=== PATIENT | female | born 1960 | race Caucasian/White ===

== ENCOUNTER 2021-10-02 15:49 | Emergency (ER) | payer MEDICAID ==
[~2021-10-02] VITALS: Ht 165.1 cm; Wt 66.0 kg
[2021-10-02] MEDS ORDERED: PREDNISONE 20MG TABLET PO ONE (16:45)
[2021-10-02] MEDS ORDERED: DIPHENHYDRAMINE 25MG CAPSULE PO ONE (16:45)
[2021-10-02] MEDS ORDERED: P20 MT (16:51)
[2021-10-02] MEDS ORDERED: DIPH25CA83 MT (16:51)
[2021-10-02 17:10] LABS: EOSINOPHILS % 3.2 % (0.0-5.0); HEMATOCRIT. 39.3 % (36.0-48.0); HEMOGLOBIN. 13.2 g/dL (12.0-16.0); LYMPHOCYTES % 19.9 % (20.0-50.0); MEAN CORPUSCULAR HEMOGLOBIN 28.4 pg (28.0-32.0); MEAN CORPUSCULAR VOLUME 84.4 fL (81.0-99.0); MEAN PLATELET VOLUME 7.6 fl (7.4-10.4); MONOCYTES % 6.6 % (2.0-8.0); NEUTROPHILS % 69.3 % (40.0-76.0); PLATELET 250 x1000/uL (130-400); RED BLOOD CELL COUNT 4.65 mill/uL (4.2-5.4); RED CELL DISTRIBUTION WIDTH 13.9 % (11.6-14.6)
[2021-10-02 17:20] LABS: CHLORIDE 107 mEq/L (98-107)
[2021-10-02] MEDS ORDERED: ENAL10TA19 MT (18:00)
[2021-10-02 18:09] VITALS: BP 144/89
[2021-10-06 06:11] LABS: HIV SCREEN 4G Non Reactive (Non Reactive)
== END 2021-10-02 18:11 | disposition home or self-care (01) ==
LOC: ER 15:49
DX: R21 Rash and other nonspecific skin eruption (principal); I10 Essential (primary) hypertension; Z98.890 Other specified postprocedural states
CPT/HCPCS: 36415; 80053; 81025; 85025; 86592; 86593; 86780; 87389; 99283; J7512; Q0163

== ENCOUNTER 2021-10-20 12:33 | Emergency (ER) | payer MEDICAID ==
[~2021-10-20] VITALS: Ht 165.1 cm; Wt 66.0 kg
[~2021-10-20 12:33] MED LIST: DIPH25CA83 MT; ENAL10TA19 MT; P20 MT
[2021-10-20] MEDS ORDERED: ONDANSETRON HCL 4MG/2ML INJ IV STA (12:45)
[2021-10-20] MEDS ORDERED: SODIUM CHLORIDE 0.9% 1,000 ML IV ONE (12:45)
[2021-10-20 13:23] LABS: HEMATOCRIT. 42.5 % (36.0-48.0); HEMOGLOBIN. 14.5 g/dL (12.0-16.0); MEAN CORPUSCULAR VOLUME 82.2 fL (81.0-99.0); MEAN PLATELET VOLUME 7.3 fl (7.4-10.4); PLATELET 457 x1000/uL (130-400); RED BLOOD CELL COUNT 5.16 mill/uL (4.2-5.4); RED CELL DISTRIBUTION WIDTH 13.2 % (11.6-14.6)
[2021-10-20] MEDS ORDERED: PENICILLIN G BENZATHINE 2,400,000 UNITS/4ML SYR IM SCH (13:30)
[2021-10-20 13:32] LABS: CHLORIDE 98 mEq/L (98-107)
[2021-10-20 13:49] LABS: PLATELET ESTIMATE INCREASED
[2021-10-20 15:00] VITALS: BP 153/98
== END 2021-10-20 15:24 | disposition home or self-care (01) ==
LOC: ER 12:33
DX: B34.9 Viral infection, unspecified (principal); A51.49 Other secondary syphilitic conditions; I10 Essential (primary) hypertension; Z20.822 Contact with and (suspected) exposure to COVID-19; Z98.890 Other specified postprocedural states; Z86.73 Personal history of transient ischemic attack (TIA), and cerebral infarction without residual deficits
CPT/HCPCS: 36415; 71045; 80053; 83880; 85025; 87070; 87426; 87430; 93005; 96360; 96372; 99285; J0561; J7030; Z7610

== ENCOUNTER 2022-02-24 18:15 | Emergency (ER) | payer MEDICAID, OTHER ==
[~2022-02-24] VITALS: Ht 167.6 cm; Wt 70.0 kg
[2022-02-24 19:08] VITALS: BP 126/93
== END 2022-02-24 19:40 | disposition left against medical advice (07) ==
LOC: ER 18:15
DX: R56.9 Unspecified convulsions (principal); I10 Essential (primary) hypertension; Z86.73 Personal history of transient ischemic attack (TIA), and cerebral infarction without residual deficits; Z98.890 Other specified postprocedural states
CPT/HCPCS: 99283

== ENCOUNTER 2022-02-25 17:13 | Emergency (ER) | payer MEDICAID ==
[~2022-02-25] VITALS: Ht 170.2 cm; Wt 57.0 kg
[2022-02-25 17:35] VITALS: BP 142/92
== END 2022-02-25 17:38 | disposition left against medical advice (07) ==
LOC: ER 17:13
DX: Z53.21 Procedure and treatment not carried out due to patient leaving prior to being seen by health care provider (principal); R56.9 Unspecified convulsions; I10 Essential (primary) hypertension; Z86.73 Personal history of transient ischemic attack (TIA), and cerebral infarction without residual deficits; Z98.890 Other specified postprocedural states

== ENCOUNTER 2022-08-10 18:11 | Emergency (ER) | payer MEDICAID ==
[~2022-08-10] VITALS: Ht 165.1 cm; Wt 70.0 kg
[2022-08-10] MEDS ORDERED: LIDOCAINE HCL 1% 20ML VIAL (Pyxis) INJ INFIL ONE (20:15)
[2022-08-10 21:41] VITALS: BP 168/112
== END 2022-08-10 21:47 | disposition home or self-care (01) ==
LOC: ER 18:11
DX: L02.411 Cutaneous abscess of right axilla (principal); I10 Essential (primary) hypertension; Z98.890 Other specified postprocedural states; Z86.73 Personal history of transient ischemic attack (TIA), and cerebral infarction without residual deficits; Z86.59 Personal history of other mental and behavioral disorders
CPT/HCPCS: 10060; 99282; Z7610

== ENCOUNTER 2022-08-15 13:11 | Emergency (ER) | payer MEDICAID ==
[~2022-08-15] VITALS: Ht 165.1 cm; Wt 75.0 kg
[2022-08-15 13:34] VITALS: BP 130/89
[2022-08-15] MEDS ORDERED: CLINDAMYCIN HCL 150MG CAPSULE PO STA (15:05)
[2022-08-15] MEDS ORDERED: CLIN-116 MT (15:09)
== END 2022-08-15 15:32 | disposition home or self-care (01) ==
LOC: ER 13:16
DX: L03.113 Cellulitis of right upper limb (principal); I10 Essential (primary) hypertension; Z98.890 Other specified postprocedural states; Z86.59 Personal history of other mental and behavioral disorders; Z86.73 Personal history of transient ischemic attack (TIA), and cerebral infarction without residual deficits
CPT/HCPCS: 99283

== ENCOUNTER 2022-08-30 18:18 | Emergency (ER) | payer MEDICAID ==
[~2022-08-30] VITALS: Ht 165.1 cm; Wt 66.0 kg
[~2022-08-30 18:18] MED LIST changes: +CLIN-116 MT
[2022-08-30 18:41] VITALS: BP 144/85
[2022-08-30] MEDS ORDERED: B50 MT (18:47)
[2022-08-30] MEDS ORDERED: CEPH500C2 MT (18:47)
[2022-08-30] MEDS ORDERED: P50 MT (18:47)
[2022-08-30] MEDS ORDERED: DIPHENHYDRAMINE 50MG CAPSULE PO ONE (19:00)
== END 2022-08-30 19:45 | disposition home or self-care (01) ==
LOC: ER 18:18
DX: L27.0 Generalized skin eruption due to drugs and medicaments taken internally (principal); T36.8X5A Adverse effect of other systemic antibiotics, initial encounter; I10 Essential (primary) hypertension; G40.909 Epilepsy, unspecified, not intractable, without status epilepticus; Z86.73 Personal history of transient ischemic attack (TIA), and cerebral infarction without residual deficits; Z98.890 Other specified postprocedural states; Y92.018 Other place in single-family (private) house as the place of occurrence of the external cause
CPT/HCPCS: 99283; Q0163

== ENCOUNTER 2023-01-31 20:40 | Emergency (ER) | payer MEDICAID ==
[~2023-01-31] VITALS: Ht 170.2 cm; Wt 78.0 kg
[~2023-01-31 20:40] MED LIST changes: +B50 MT; +CEPH500C2 MT; +ENAL-77 MT; -ENAL10TA19 MT; +P50 MT
[2023-01-31 21:19] LABS: BASOPHILS % 0.7 % (0.0-2.0); EOSINOPHILS % 3.8 % (0.0-5.0); HEMATOCRIT. 40.8 % (36.0-48.0); HEMOGLOBIN. 13.6 g/dL (12.0-16.0); LYMPHOCYTES % 24.3 % (20.0-50.0); MEAN CORPUSCULAR HEMOGLOBIN 28.7 pg (28.0-32.0); MEAN CORPUSCULAR VOLUME 86.1 fL (81.0-99.0); MEAN PLATELET VOLUME 7.6 fl (7.4-10.4); MONOCYTES % 7.2 % (2.0-8.0); PLATELET 287 x1000/uL (130-400); RED BLOOD CELL COUNT 4.73 mill/uL (4.2-5.4); RED CELL DISTRIBUTION WIDTH 14.6 % (11.6-14.6)
[2023-01-31 21:29] LABS: CHLORIDE 105 mEq/L (98-107)
[2023-01-31] MEDS ORDERED: IPRATROPIUM BROMIDE (0.02%) 0.5MG/2.5ML NEB HHN STA (21:36)
[2023-01-31] MEDS ORDERED: ALBUTEROL (0.083%) 2.5MG/3ML NEB HHN STA (21:36)
[2023-01-31] MEDS ORDERED: ALBUTEROL (0.083%) 2.5MG/3ML NEB HHN NR (23:45)
[2023-01-31] MEDS ORDERED: IPRATROPIUM BROMIDE (0.02%) 0.5MG/2.5ML NEB HHN NR (23:45)
[2023-02-01] VITALS: PULSE 89; RESP 20; O2SAT 95
[2023-02-01] MEDS ORDERED: P50 MT (00:58)
[2023-02-01] MEDS ORDERED: AZIT500T8 MT (00:58)
[2023-02-01] MEDS ORDERED: ALBU6.7H3 INH (00:58)
[2023-02-01 01:00] VITALS: BP 123/75; PULSE 78; RESP 16; TEMP 98
== END 2023-02-01 01:04 | disposition home or self-care (01) ==
LOC: ER 20:40
DX: R06.02 Shortness of breath (principal); R05.9 Cough, unspecified; I10 Essential (primary) hypertension; Z86.73 Personal history of transient ischemic attack (TIA), and cerebral infarction without residual deficits
CPT/HCPCS: 80053; 85025; 36415; 71045; 94640; 99284; Z7610 ×3

== ENCOUNTER 2023-02-15 22:55 | Emergency (ER) | payer MEDICAID ==
[~2023-02-15 22:55] MED LIST changes: +ALBU6.7H3 INH; +AZIT500T8 MT
[2023-02-16] MEDS ORDERED: ACETAMINOPHEN 325MG TABLET PO ONE (02:45)
[2023-02-16] MEDS ORDERED: IBUPROFEN 400MG TABLET PO ONE (02:45)
[2023-02-16 03:16] VITALS: BP 155/104
[2023-02-16] MEDS ORDERED: IBUP-2028 MT (04:08)
[2023-02-16] MEDS ORDERED: TOPUD PO (04:08)
[2023-02-16 04:34] VITALS: PULSE 112; RESP 16; TEMP 99.7
== END 2023-02-16 04:35 | disposition home or self-care (01) ==
LOC: ER 22:55
DX: S00.12XA Contusion of left eyelid and periocular area, initial encounter (principal); I10 Essential (primary) hypertension; Z79.899 Other long term (current) drug therapy; Z98.890 Other specified postprocedural states; Z86.73 Personal history of transient ischemic attack (TIA), and cerebral infarction without residual deficits; Y04.0XXA Assault by unarmed brawl or fight, initial encounter; Y93.89 Activity, other specified; Y92.89 Other specified places as the place of occurrence of the external cause; Y99.8 Other external cause status
CPT/HCPCS: 70486; 99284

== ENCOUNTER 2023-06-29 16:47 | Emergency (ER) | payer MEDICAID ==
[~2023-06-29] VITALS: Ht 167.6 cm; Wt 68.0 kg
[~2023-06-29 16:47] MED LIST changes: +IBUP-2028 MT; +TOPUD PO
[2023-06-29 16:49] VITALS: O2SAT 99
[2023-06-29] MEDS ORDERED: TETANUS, DIPHTHERIA, PERTUSSIS VAC/PF 0.5ML (>10YR OLD) IM ONE ×2 (17:00→20:00)
[2023-06-29 23:10] VITALS: BP 122/66; PULSE 84; RESP 16; TEMP 98.2
== END 2023-06-29 23:25 | disposition home or self-care (01) ==
LOC: ER 16:47
DX: R45.1 Restlessness and agitation (principal); T40.995A Adverse effect of other psychodysleptics [hallucinogens], initial encounter; F19.90 Other psychoactive substance use, unspecified, uncomplicated; I10 Essential (primary) hypertension; Z86.73 Personal history of transient ischemic attack (TIA), and cerebral infarction without residual deficits; Z98.890 Other specified postprocedural states; Y92.89 Other specified places as the place of occurrence of the external cause
CPT/HCPCS: 73630; 82962; 90471; 90715; 99285

== ENCOUNTER 2023-07-26 04:35 | Emergency (ER) | payer MEDICAID ==
[~2023-07-26] VITALS: Ht 170.2 cm; Wt 73.0 kg
[2023-07-26 04:39] VITALS: BP 106/73; PULSE 78; RESP 16; TEMP 97.7; O2SAT 97
[2023-07-26 08:59] LABS: HEMATOCRIT. 46.7 % (36.0-48.0); HEMOGLOBIN. 14.8 g/dL (12.0-16.0); MEAN CORPUSCULAR HEMOGLOBIN 28.3 pg (28.0-32.0); MEAN CORPUSCULAR HGB CONC 31.7 g/dL (31.0-37.0); MEAN CORPUSCULAR VOLUME 89.4 fL (81.0-99.0); MEAN PLATELET VOLUME 7.6 fl (7.4-10.4); PLATELET 254 x1000/uL (130-400); RED BLOOD CELL COUNT 5.22 mill/uL (4.2-5.4); RED CELL DISTRIBUTION WIDTH 14.6 % (11.6-14.6); WHITE BLOOD COUNT 18.1 x1000/uL (4.5-11.0)
[2023-07-26 09:04] LABS: DIFFERENTIAL COMMENT 1
[2023-07-26 09:21] LABS: ALANINE AMINOTRANSFERASE 27 IU/L (10-49); ALBUMIN 4.6 g/dL (3.2-4.8); ASPARTATE AMINOTRANSFERASE 34 IU/L (<34); BILIRUBIN TOTAL 0.8 mg/dL (0.1-1.0); CALCIUM 10.4 mg/dL (8.7-10.4); CARBON DIOXIDE 25 mEq/L (21-32); CHLORIDE 105 mEq/L (98-107); GLUCOSE 133 mg/dL (70-105); POTASSIUM 3.7 mEq/L (3.5-5.1); PROTEIN TOTAL 8.2 g/dL (6.0-8.3); SODIUM 139 mEq/L (136-145); UREA NITROGEN BLOOD 26 mg/dL (9-23)
[2023-07-26] MEDS ORDERED: MAGNESIUM/ALUMINUM HYDROXIDE/SIMETHICONE 30ML UDC PO STA (11:16)
[2023-07-26] MEDS ORDERED: FAMOTIDINE 20MG TABLET PO ONE (11:30)
[2023-07-26 14:51] LABS: PLATELET ESTIMATE NORMAL
[2023-07-26 14:52] LABS: HYPOCHROMASIA 1+
== END 2023-07-26 12:00 | disposition left against medical advice (07) ==
LOC: ER 04:45
DX: R10.33 Periumbilical pain (principal); I10 Essential (primary) hypertension; Z86.59 Personal history of other mental and behavioral disorders; Z86.73 Personal history of transient ischemic attack (TIA), and cerebral infarction without residual deficits
CPT/HCPCS: 36415; 80053; 85025; 99283

== ENCOUNTER 2023-12-24 18:14 | Emergency (ER) | payer MEDICAID ==
[~2023-12-24] VITALS: Ht 165.1 cm; Wt 71.0 kg
[2023-12-24 18:27] VITALS: TEMP 98.1; O2SAT 95
[2023-12-24] MEDS ORDERED: ENALAPRIL (18:27)
[2023-12-24 19:51] LABS: EOSINOPHILS % 3.3 % (0.0-5.0); HEMATOCRIT. 40.1 % (36.0-48.0); HEMOGLOBIN. 13.5 g/dL (12.0-16.0); MEAN CORPUSCULAR HEMOGLOBIN 29.8 pg (28.0-32.0); MEAN CORPUSCULAR HGB CONC 33.6 g/dL (31.0-37.0); MEAN CORPUSCULAR VOLUME 88.6 fL (81.0-99.0); MEAN PLATELET VOLUME 7.6 fl (7.4-10.4); MONOCYTES % 7.5 % (2.0-8.0); NEUTROPHILS % 68.2 % (40.0-76.0); PLATELET 279 x1000/uL (130-400); RED BLOOD CELL COUNT 4.53 mill/uL (4.2-5.4); RED CELL DISTRIBUTION WIDTH 14.7 % (11.6-14.6)
[2023-12-24 19:52] VITALS: BP 143/89; PULSE 90; RESP 18
[2023-12-24] MEDS: TRAMADOL 50MG TABLET PO ONE (19:52)
[2023-12-24 19:57] LABS: CARBON DIOXIDE 27 mEq/L (21-32); CHLORIDE 108 mEq/L (98-107); POTASSIUM 4.5 mEq/L (3.5-5.1); SODIUM 141 mEq/L (136-145)
[2023-12-24 19:58] LABS: CALCIUM 10.1 mg/dL (8.7-10.4)
[2023-12-24 20:03] LABS: CREATININE 0.8 mg/dL (0.6-1.0); GLUCOSE 112 mg/dL (70-105); UREA NITROGEN BLOOD 14 mg/dL (9-23)
[2023-12-24 20:04] LABS: LACTIC ACID 2.1 mmol/L (0.4-2.0)
[2023-12-24 20:08] LABS: INR 0.9; PROTHROMBIN TIME 10.3 sec (9.6-11.0)
== END 2023-12-24 22:07 | disposition left against medical advice (07) ==
LOC: ER 18:14
DX: R10.30 Lower abdominal pain, unspecified (principal); R11.10 Vomiting, unspecified; I10 Essential (primary) hypertension; Z86.73 Personal history of transient ischemic attack (TIA), and cerebral infarction without residual deficits; Z98.890 Other specified postprocedural states; Z79.899 Other long term (current) drug therapy
CPT/HCPCS: 36415; 80048; 83605; 85025; 99283

== ENCOUNTER 2024-07-21 19:08 | Emergency (ER) | payer MEDICAID, OTHER ==
[~2024-07-21] VITALS: Ht 162.6 cm; Wt 63.0 kg
[~2024-07-21 19:08] MED LIST changes: +ENALAPRIL
[2024-07-21 19:10] VITALS: O2SAT 97
[2024-07-21] MEDS: ONDANSETRON HCL 4MG/2ML INJ IV STA (20:18)
[2024-07-21] MEDS: GLUCAGON,HUMAN RECOMBINANT 1MG/VIAL IV ONE (20:18)
[2024-07-21] MEDS: SODIUM CHLORIDE 0.9% 1,000 ML IV ONE (20:18)
[2024-07-21 20:53] LABS: BASOPHILS % 1.2 % (0.0-2.0); EOSINOPHILS % 2.1 % (0.0-5.0); HEMATOCRIT. 45.5 % (36.0-48.0); HEMOGLOBIN. 15.1 g/dL (12.0-16.0); MEAN CORPUSCULAR HEMOGLOBIN 29.7 pg (28.0-32.0); MEAN CORPUSCULAR HGB CONC 33.2 g/dL (31.0-37.0); MEAN CORPUSCULAR VOLUME 89.4 fL (81.0-99.0); MEAN PLATELET VOLUME 8.1 fl (7.4-10.4); MONOCYTES % 5.3 % (2.0-8.0); NEUTROPHILS % 69.4 % (40.0-76.0); PLATELET 261 x1000/uL (130-400); RED BLOOD CELL COUNT 5.09 mill/uL (4.2-5.4); RED CELL DISTRIBUTION WIDTH 13.8 % (11.6-14.6); WHITE BLOOD COUNT 7.1 x1000/uL (4.5-11.0)
[2024-07-21 21:02] LABS: CHLORIDE 104 mEq/L (98-107); INR 0.9; POTASSIUM 3.9 mEq/L (3.5-5.1); PROTHROMBIN TIME 10.3 sec (9.6-11.0); SODIUM 139 mEq/L (136-145)
[2024-07-21 21:03] LABS: CARBON DIOXIDE 26 mEq/L (21-32)
[2024-07-21 21:04] LABS: CALCIUM 9.9 mg/dL (8.7-10.4)
[2024-07-21 21:09] LABS: CREATININE 0.7 mg/dL (0.6-1.0); GLUCOSE 111 mg/dL (70-105); UREA NITROGEN BLOOD 12 mg/dL (9-23)
[2024-07-21 21:35] VITALS: BP 143/82; PULSE 89; RESP 18; TEMP 36.66960; O2SAT 100
== END 2024-07-21 21:45 | disposition home or self-care (01) ==
LOC: ER 19:08
DX: T18.128A Food in esophagus causing other injury, initial encounter (principal); I10 Essential (primary) hypertension; F19.90 Other psychoactive substance use, unspecified, uncomplicated; Z86.73 Personal history of transient ischemic attack (TIA), and cerebral infarction without residual deficits; Z79.899 Other long term (current) drug therapy; Z98.890 Other specified postprocedural states; W44.F3XA Food entering into or through a natural orifice, initial encounter; Y93.89 Activity, other specified; Y92.89 Other specified places as the place of occurrence of the external cause; Y99.8 Other external cause status
CPT/HCPCS: 99284; 96374; 71045; 96361; 96375; 80048; 85025; 85610; 36415; 70360; J1610; J2405; J7030